=== PATIENT | female | born 1995 | race Two or more races ===

== ENCOUNTER 2019-01-25 16:59 | Emergency (ER) | payer BC ==
[~2019-01-25] VITALS: Ht 154.9 cm; Wt 43.1 kg
[2019-01-25] MEDS ORDERED: SYNTHROID88 MCG (17:16)
[2019-01-25] MEDS ORDERED: ATENOLOL25 MG (17:16)
== END 2019-01-25 23:27 | disposition home or self-care (01) ==
LOC: EDBD 16:59 → ER 16:59
DX: K59.09 Other constipation (principal)